=== PATIENT | female | born 1985 | race African-American/Black ===

== ENCOUNTER 2016-12-05 07:28 | Outpatient (CLI) | payer OTHER, MEDICAID ==
--- NOTE | 2016-12-05 08:01 | L&D Flow Sheet ---
LD Flowsheet Datetime Report Generated by CPN: 12/05/2016 08:00 Datetime: 12/05/2016 07:56 Vital Signs NBP Sys/Thea/Mean (mmHg): 105 (QS system process) : 55 (QS system process) : 75 (QS system process) Pulse: 87 (QS system process)
[2016-12-05 08:09] LABS: APPEARANCE,URINE CLEAR; BILIRUBIN,URINE NEGATIVE (NEGATIVE); GLUCOSE, URINE NEGATIVE (NEGATIVE); KETONES,URINE NEGATIVE (NEGATIVE); LEUKOCYTE ESTERASE,URINE NEGATIVE (NEGATIVE); NITRITE,URINE NEGATIVE (NEGATIVE); PROTEIN,URINE NEGATIVE (NEGATIVE); URINE SPECIFIC GRAVITY 1.016; UROBILINOGEN,URINE NEGATIVE mg/dL (<2.0)
[2016-12-05 08:23] LABS: URINE BARBITURATES SCREEN NEGATIVE; URINE METHADONE SCREEN NEGATIVE; URINE OPIATES LOW NEGATIVE; URINE PHENCYCLIDINE SCREEN NEGATIVE
--- NOTE | 2016-12-05 10:01 | L&D Flow Sheet ---
LD Flowsheet Datetime Report Generated by CPN: 12/05/2016 10:00 Datetime: 12/05/2016 09:00 Monitor Mode: External (Mery Hedrick, RN) Frequency (min): None (Mery Hedrick, RN) Resting Tone (Palpate): Relaxed (Mery Hedrick, RN) Monitor Mode: External US (Mery Hedrick, RN) FHR Baseline Rate : 125 (Mery Hedrick, RN) Variability: Moderate 6-25 bpm (Mery Hedrick, RN) Accelerations: 15X15 (Mery Hedrick, RN) Decelerations: None (Mery Hedrick, RN) Datetime: 12/05/2016 08:58 I/O Interventions: Up to BR (Mery Hedrick RN) Datetime: 12/05/2016 08:56 NBP Sys/Thea/Mean (mmHg): 98 (QS system process) : 54 (QS system process) : 70 (QS system process) Pulse: 89 (QS system process) Datetime: 12/05/2016 08:30 Monitor Mode: External (Mery Hedrick RN) Frequency (min): x1 (Mery Hedrick RN) Quality: Mild (Mery Hedrick RN) Duration (sec): 50 (Mery Hedrick RN) Resting Tone (Palpate): Relaxed (Mery Hedrick RN) Monitor Mode: External US (Mery Hedrick RN) FHR Baseline Rate : 135 (Mery Hedrick RN) Variability: Moderate 6-25 bpm (Mery Hedrick RN) Accelerations: 10X10 (Mery Hedrick RN) Decelerations: None (Mery Hedrick RN) Datetime: 12/05/2016 08:27 NBP Sys/Thea/Mean (mmHg): 101 (QS system process) : 58 (QS system process) : 76 (QS system process) Pulse: 85 (QS system process)
== END 2016-12-05 10:43 | disposition home or self-care (01) ==
LOC: LC 07:28
PROVIDERS: ATTEND Obstetrics & Gynecology
PROC: 4A1HXCZ Monitoring of Products of Conception, Cardiac Rate, External Approach (ICD-10-PCS; principal; 2016-12-05)
DX: O46.93 Antepartum hemorrhage, unspecified, third trimester (principal); Z3A.31 31 weeks gestation of pregnancy
CPT/HCPCS: 76815; 80307; 81001

== ENCOUNTER 2017-01-28 15:49 | Outpatient (CLI) | payer OTHER, MEDICAID ==
--- NOTE | 2017-01-28 16:50 | Non Stress Test Report ---
Non Stress Test Datetime Report Generated by CPN: 01/28/2017 16:49 DEMOGRAPHIC EGA NST: 39.2 INDICATION Indication for Study: Other Indication for Study (NST) Other: LABOR CHECK- SWELLING IN LEGS MONITORING Monitor Explained: Monitor Explained; Test Explained; Patient Verbalized Understanding Time on Monitor: 01/28/2017 16:17 Time off Monitor: 01/28/2017 16:38 NST Duration: 21 NST INTERVENTIONS NST Interventions: PO Hydration; Reposition Patient Physician Notified NST: DR WEINER REVIEWED STRIP BABY A: [id number] BABY A Movement : Present Contraction Frequency : x2 FHR Baseline : 135 Accelerations : 15X15 Decelerations : None Variability : Moderate 6-25bpm NST Review: Meets Criteria for Reactive NST NST Review and Verified By : Marcia Malave RN NST Results: Reactive NST REPORT Report Trigger: Send Report
[2017-01-28 17:13] LABS: APPEARANCE,URINE SLIGHTLY-CLOUDY; BILIRUBIN,URINE NEGATIVE (NEGATIVE); GLUCOSE, URINE NEGATIVE (NEGATIVE); KETONES,URINE NEGATIVE (NEGATIVE); LEUKOCYTE ESTERASE,URINE NEGATIVE (NEGATIVE); NITRITE,URINE NEGATIVE (NEGATIVE); PROTEIN,URINE NEGATIVE (NEGATIVE); UROBILINOGEN,URINE NEGATIVE mg/dL (<2.0)
[2017-01-28 17:44] LABS: URINE BARBITURATES SCREEN NEGATIVE; URINE METHADONE SCREEN NEGATIVE; URINE OPIATES LOW NEGATIVE; URINE PHENCYCLIDINE SCREEN NEGATIVE
== END 2017-01-28 16:57 | disposition home or self-care (01) ==
LOC: LC 15:49
PROVIDERS: ATTEND Obstetrics & Gynecology
PROC: 4A1HXCZ Monitoring of Products of Conception, Cardiac Rate, External Approach (ICD-10-PCS; principal; 2017-01-28)
DX: O12.03 Gestational edema, third trimester (principal); Z3A.39 39 weeks gestation of pregnancy
CPT/HCPCS: 59025; 80307; 81005

== ENCOUNTER 2017-02-28 00:37 | Emergency (ER) | payer OTHER, MEDICAID ==
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
[2017-02-28] MEDS ORDERED: NAPROXEN 250 MG TABLET PO ONE (00:52)
[2017-02-28 01:08] VITALS: BP 169/98
== END 2017-02-28 01:46 | disposition home or self-care (01) ==
LOC: ER 00:37
DX: S16.1XXA Strain of muscle, fascia and tendon at neck level, initial encounter (principal); M54.2 Cervicalgia; V87.7XXA Person injured in collision between other specified motor vehicles (traffic), initial encounter
CPT/HCPCS: 99283

== ENCOUNTER 2018-07-04 11:55 | Emergency (ER) | payer MEDICAID, OTHER ==
--- NOTE | 2018-07-04 13:04 | ER Document Report ---
ED Medical Screen (RME) - General Chief Complaint: Vaginal Bleeding Stated Complaint: VAGINAL BLEEDING Time Seen by Provider: 07/04/18 12:58 Mode of Arrival: Ambulatory Information source: Patient TRAVEL OUTSIDE OF THE [place] IN LAST 30 DAYS: No - HPI Patient complains to provider of: Vaginal bleeding today Onset: Other - 32-year-old female who had a medically induced miscarriage in April of this year with a return to normal functioning thereafter, had not had any menses since that time today began to have painless vaginal bleeding with passage of large clots in the toilet subsequently began to have cramping pain and passage of many other large clots which is persisted since. She denies any problems with bleeding in the past having menses in the past previous surgeries or other symptoms. - Related Data Allergies/Adverse Reactions: aspirin Allergy (Verified 12/05/16 07:58) Pruritis Past Medical History Past Surgical History: Reports: Hx Section - Immunizations Hx Diphtheria, Pertussis, Tetanus Vaccination: Yes Physical Exam - Vital signs Vitals: Temp Pulse Resp BP Pulse Ox 98.4 F 79 18 138/92 H 99 07/04/18 12:04 07/04/18 12:04 07/04/18 12:04 07/04/18 12:04 07/04/18 12:04 Course - Re-evaluation Re-evalutation: 07/04/18 13:04 32-year-old female presents for vaginal bleeding and cramping after having a medically induced miscarriage and 2 months prior. On examination she is overall well-appearing hemodynamically stable, will plan for this patient undergo a likely pelvic examination CBC with coags to be checked to ensure she does not have a reason to be bleeding. We will obtain urinalysis and urine as well. We will plan for disposition determination based on follow-up examination. - Vital Signs Vital signs: Temp Pulse Resp BP Pulse Ox 98.4 F 79 18 138/92 H 99 07/04/18 12:04 07/04/18 12:04 07/04/18 12:04 07/04/18 12:04 07/04/18 12:04
[2018-07-04 14:32] LABS: INTERNATIONAL RATION (INR) 0.96; PARTIAL THROMBOPLASTIN TIME 30.9 SEC (23.5-35.8); PROTHROMBIN TIME 13.3 SEC (11.4-15.4)
[2018-07-04 14:37] LABS: ABSOLUTE BASOPHILS # (AUTO) 0.1 10^3/uL (0.0-0.2); ABSOLUTE EOSINOPHILS # (AUTO) 0.1 10^3/uL (0.0-0.6); ABSOLUTE MONOCYTES (AUTO) 0.5 10^3/uL (0.1-1.4); ABSOLUTE NEUT (AUTO) 3.9 10^3/uL (1.7-8.2); HEMATOCRIT 38.8 % (36.0-47.0); LYMPHOCYTES % (AUTO) 30.3 % (13-45); MEAN CORPUSCULAR HEMOGLOBIN 28.3 pg (27.0-33.4); MEAN CORPUSCULAR HGB CONC 33.6 g/dL (32.0-36.0); MEAN CORPUSCULAR VOLUME 84 fl (80-97); MONOCYTES % (AUTO) 7.4 % (3-13); PLATELET COUNT 290 10^3/uL (150-450); RED BLOOD COUNT 4.61 10^6/uL (3.72-5.28); RED CELL DISTRIBUTION WIDTH 14.2 % (11.5-14.0); SEGMENTED NEUTROPHILS % (AUTO) 60.3 % (42-78); TOTAL CELLS COUNTED % (AUTO) 100 %; WHITE BLOOD COUNT 6.5 10^3/uL (4.0-10.5)
[2018-07-04 14:45] LABS: APPEARANCE,URINE CLOUDY; BILIRUBIN,URINE NEGATIVE (NEGATIVE); COLOR,URINE RED; GLUCOSE, URINE 50 mg/dL (NEGATIVE); KETONES,URINE NEGATIVE (NEGATIVE); LEUKOCYTE ESTERASE,URINE NEGATIVE (NEGATIVE); NITRITE,URINE NEGATIVE (NEGATIVE); PROTEIN,URINE >=500 mg/dL (NEGATIVE); URINE SPECIFIC GRAVITY 1.015; UROBILINOGEN,URINE NEGATIVE mg/dL (<2.0)
[2018-07-04 14:52] LABS: ANION GAP 13 (5-19); BLOOD UREA NITROGEN 5 mg/dL (7-20); CALCIUM 9.6 mg/dL (8.4-10.2); CARBON DIOXIDE 25 mmol/L (22-30); CHLORIDE 103 mmol/L (98-107); GLUCOSE 82 mg/dL (75-110); POTASSIUM 3.6 mmol/L (3.6-5.0); SODIUM 141.3 mmol/L (137-145)
--- NOTE | 2018-07-04 15:36 | ER Document Report ---
ED GI/ - General Chief Complaint: Vaginal Bleeding Stated Complaint: VAGINAL BLEEDING Time Seen by Provider: 07/04/18 12:58 Mode of Arrival: Ambulatory Information source: Patient TRAVEL OUTSIDE OF THE [place] IN LAST 30 DAYS: No - HPI Patient complains to provider of: Vaginal bleeding Onset: This morning Timing/Duration: Persistent Quality of pain: Cramping Severity at maximum: Mild Severity in ED: Mild Location: Suprapubic Vaginal bleeding (Compared to normal period): Heavier, Passing clots Similar symptoms previously: No Recently seen / treated by doctor: Yes Notes: 07/04/18 15:35 Patient is a 32-year-old female presenting to the emergency room complaining of heavy vaginal bleeding with passage of large clots and cramping that started around 11:00 today, patient had a medically induced on April 30 at [facility], she bled for a few days afterwards and has had some spotting , she is currently using a NuvaRing for contraceptive protection, and noted a slight odor and discharge when she inserted the NuvaRing, she reports mild cramping, no fevers, no dysuria - Related Data Allergies/Adverse Reactions: aspirin Allergy (Verified 07/04/18 13:06) Pruritis Past Medical History - General Information source: Patient - Social History Smoking Status: Current Every Day Smoker Chew tobacco use (# tins/day): No Frequency of alcohol use: Occasional Drug Abuse: Marijuana Family History: Reviewed & Not Pertinent Patient has suicidal ideation: No Patient has homicidal ideation: No Renal/ Medical History: Denies: Hx Peritoneal Dialysis Past Surgical History: Reports: Hx Section - Immunizations Hx Diphtheria, Pertussis, Tetanus Vaccination: Yes Review of Systems - Review of Systems Constitutional: No symptoms reported EENT: No symptoms reported Cardiovascular: No symptoms reported Respiratory: No symptoms reported Gastrointestinal: No symptoms reported Genitourinary: No symptoms reported Female Genitourinary: See HPI Musculoskeletal: No symptoms reported Skin: No symptoms reported Hematologic/Lymphatic: No symptoms reported Neurological/Psychological: No symptoms reported -: Yes All other systems reviewed and negative Physical Exam - Vital signs Vitals: Temp Pulse Resp BP Pulse Ox 98.4 F 79 18 138/92 H 99 07/04/18 12:04 07/04/18 12:04 07/04/18 12:04 07/04/18 12:04 07/04/18 12:04 Interpretation: Normal - General General appearance: Appears well, Alert - HEENT Head: Normocephalic, Atraumatic Eyes: Normal Pupils: PERRL - Respiratory Respiratory status: No respiratory distress Chest status: Nontender Breath sounds: Normal Chest palpation: Normal - Cardiovascular Rhythm: Regular Heart sounds: Normal auscultation Murmur: No - Abdominal Inspection: Normal Distension: No distension Bowel sounds: Normal Tenderness: Nontender Organomegaly: No organomegaly - Back Back: Normal, Nontender - Extremities General upper extremity: Normal inspection, Nontender, Normal color, Normal ROM , Normal temperature General lower extremity: Normal inspection, Nontender, Normal color, Normal ROM , Normal temperature, Normal weight bearing. No: Kalpesh's sign - Neurological Neuro grossly intact: Yes Cognition: Normal Orientation: AAOx4 [place] Coma Scale Eye Opening: Spontaneous [place] Coma Scale Verbal: Oriented [place] Coma Scale Motor: Obeys Commands [place] Coma Scale Total: 15 Speech: Normal Motor strength normal: LUE, RUE, LLE, RLE Sensory: Normal - Psychological Associated symptoms: Normal affect, Normal mood - Skin Skin Temperature: Warm Skin Moisture: Dry Skin Color: Normal Course - Re-evaluation Re-evalutation: 07/04/18 17:11 Patient history, labs, vital signs and ultrasound findings were discussed with on-call [facility], Dr. Villegas who recommends patient be given high dose hormones and be discharged for follow-up as an outpatient, I did specifically question whether we needed to be concerned about retained products of conception given patient's positive hCG, which he stated was not of concern at this point in time , therefore patient will be given a dose of Provera in the emergency department and advised for close follow-up with strict return precautions, patient acknowledges understanding and agreement with this plan - Vital Signs Vital signs: Temp Pulse Resp BP Pulse Ox 98.4 F 79 18 138/92 H 99 07/04/18 12:04 07/04/18 12:04 07/04/18 12:04 07/04/18 12:04 07/04/18 12:04 - Laboratory Result Diagrams: 07/04/18 13:52 07/04/18 13:52 Laboratory results interpreted by me: 07/04/18 07/04/18 07/04/18 13:52 13:52 13:52 RDW 14.2 H BUN 5 L Beta HCG, Quant Urine Protein >=500 H Urine Glucose (UA) 50 H Urine Blood LARGE H 07/04/18 13:52 RDW BUN Beta HCG, Quant 8.06 H Urine Protein Urine Glucose (UA) Urine Blood - Diagnostic Test Radiology reviewed: Image reviewed, Reports reviewed Discharge - Discharge Clinical Impression: Dysfunctional uterine bleeding Condition: Stable Disposition: HOME, SELF-CARE Instructions: Dysfunctional Uterine Bleeding ([facility]) Additional Instructions: Follow up with your primary care provider and [facility] in one to 2 days. Return to the emergency room immediately if symptoms worsen or any additional concerns.
--- NOTE | 2018-07-04 16:46 | RADIOLOGY REPORT (SQ) ---
EXAM DESCRIPTION: U/S NON OB PEL W/DOPPLER COMPLETED DATE/TIME: 07/04/2018 4:30 pm REASON FOR STUDY: vag bleeding COMPARISON: None. TECHNIQUE: Dynamic and static grayscale images acquired of the pelvis via transabdominal approach an d recorded on PACS. Additional selected color Doppler and spectral images recorded. LIMITATIONS: None. FINDINGS: UTERUS: Contour normal. A tiny hypoechoic area is identified within the superior uterus m easuring 1.9 x 1.5 x 1.5 cm the appearance would suggest a small cyst however other etiologies cannot be excluded ENDOMETRIAL STRIPE: No focal or generalized thickening. Hypoechoic area is identified measuring 2.0 x 1.5 x 2.6 cm in diameters. The appearance would suggest a cystic lesion however other etiologies c annot be excluded CERVIX: No nabothian cysts. RIGHT OVARY AND DOPPLER: Normal size. No worrisome masses. Normal arterial vascular flow without evid ence for torsion. LEFT OVARY AND DOPPLER: Left ovary was not visualized. FREE FLUID: None noted. OTHER: No other significant finding. MEASUREMENTS: UTERUS: 11.4 x 5.4 x 6.1 cm ENDOMETRIAL STRIPE: 14 mm RIGHT OVARY: 2.8 by 3.4 x 2.9 cm LEFT OVARY: Not visualized IMPRESSION: Small hypoechoic areas within the uterus and endometrium as noted above suggesting cysti c lesions however other etiologies cannot be excluded. No other significant pelvic abnormalities wer e identified. Other findings as noted above TECHNICAL DOCUMENTATION: JOB ID: [id number]- All Rights Reserved Reading location - IP/workstation name: [email or web address]
[2018-07-04] MEDS ORDERED: MEDROXYPROGESTERONE ACET 10 MG TABLET PO ONE (17:05)
[2018-07-04 17:24] VITALS: BP 118/80
== END 2018-07-04 17:24 | disposition home or self-care (01) ==
LOC: ER 11:55
DX: N93.8 Other specified abnormal uterine and vaginal bleeding (principal); R10.30 Lower abdominal pain, unspecified; F17.200 Nicotine dependence, unspecified, uncomplicated; F12.10 Cannabis abuse, uncomplicated; Z97.5 Presence of (intrauterine) contraceptive device; Z98.890 Other specified postprocedural states; Z88.6 Allergy status to analgesic agent
CPT/HCPCS: 99284; 36415; 84702; 85025; 85610; 85730; 81025; 80048; 81001; 76856; 93976; J3490

== ENCOUNTER 2018-08-29 14:01 | Emergency (ER) | payer OTHER, MEDICAID ==
[2018-08-29 14:30] VITALS: BP 137/92
[2018-08-29] MEDS ORDERED: IBUPROFEN 600 MG TABLET PO ONE (14:54)
--- NOTE | 2018-08-29 15:08 | ER Document Report ---
HPI - HPI Pain Level: 5 Notes: Patient is a 32-year-old female with complaint of right upper dental pain around tooth #30 and 31. Patient reports she broke #30 several years ago however she thinks there are some fragments of tooth still left and reports that the pain has worsened over the last several days. Patient denies any fevers. Has not seen a dentist. - CONSTITUTIONAL Constitutional: DENIES: Fever, Chills - REPRODUCTIVE Reproductive: DENIES: : Past Medical History - General Information source: Patient - Social History Smoking Status: Current Every Day Smoker Frequency of alcohol use: Occasional Drug Abuse: Marijuana Family History: Reviewed & Not Pertinent Patient has suicidal ideation: No Patient has homicidal ideation: No - Medical History Medical History: Negative Renal/ Medical History: Denies: Hx Peritoneal Dialysis Past Surgical History: Reports: Hx Section - Immunizations Hx Diphtheria, Pertussis, Tetanus Vaccination: Yes Vertical Provider Document - CONSTITUTIONAL Notes: PHYSICAL EXAMINATION: GENERAL: Well-appearing, well-nourished and in no acute distress. HEAD: Atraumatic, normocephalic. EYES: Pupils equal round extraocular movements intact, conjunctiva are normal. ENT: Nares patent edema and erythema noted around tooth #31, tooth #30, is missing. No drainable abscess identified. NECK: Normal range of motion LUNGS: No respiratory distress Musculoskeletal: Normal range of motion NEUROLOGICAL: Normal speech, normal gait. PSYCH: Normal mood, normal affect. SKIN: Warm, Dry, normal turgor, no rashes or lesions noted. - INFECTION CONTROL TRAVEL OUTSIDE OF THE [place] IN LAST 30 DAYS: No Course - Re-evaluation Re-evalutation: Physical examination consistent with dental infection, no drainable abscess identified. Patient does appear to be in pretty significant pain. Will give short course of hydrocodone. Patient will be started on penicillin VK. Patient instructed to call tomorrow to schedule an appointment with a dentist. - Vital Signs Vital signs: Temp Pulse Resp BP Pulse Ox 98.9 F 64 16 137/92 H 100 08/29/18 14:29 08/29/18 14:29 08/29/18 14:29 08/29/18 14:29 08/29/18 14:29 Discharge - Discharge Clinical Impression: Dental infection Condition: Stable Disposition: HOME, SELF-CARE Additional Instructions: TOOTHACHE: Your pain is due to dental decay. The tooth must be repaired in order for you to feel better. You will, therefore, be referred to a dentist. We do not have dentists on the staff at [facility]. Severe swelling or drainage around a tooth usually means a dental abscess. This also requires evaluation and treatment by the dentist, but antibiotics may be prescribed while awaiting dental treatment. You should be rechecked immediately if you develop major swelling of the face, increasing pain, a lump in the jaw or gums, headache, difficulty swallowing, or fever. ORAL NARCOTIC MEDICATION: You have been given a prescription for pain control. This medication is a narcotic. It's best taken with food, as nausea can result if taken on an empty stomach. Don't operate machinery or drive within six hours of taking this medication. Do not combine this medicine with alcohol, or with any medication which can cause sedation (such as cold tablets or sleeping pills) unless you get permission from the physician. Narcotics tend to cause constipation. If possible, drink plenty of fluids and eat a diet high in fiber and fruits. Please be aware that prescription narcotics also have the potential for abuse. People become addicted to these medications because of the general sense of wellbeing that they induce. This feeling along with a significant reduction in tension, anxiety, and aggression provides a stimulating seductive quality to these drugs. Once your pain is under control, we encourage you to discard your unused narcotics. PENICILLIN V K: You have been given a prescription for Penicillin VK. Your physician has determined that this is the best antibiotic for your condition. Pen VK can be taken with meals, however more of the antibiotic gets into the bloodstream if it's taken on an empty stomach. Penicillin usually has no side effects. However, allergy to penicillins is common. If you have had an allergic reaction to any drug of the penicillin family, you should never take any other penicillin. Notify your doctor at once if you develop hives, itching, swelling, faintness, or shortness of breath. FOLLOW-UP CARE: You have been referred for follow-up care to the dentists listed below. Call the dentists office for an appointment as you were instructed or within the next two days. If you experience worsening or a significant change in your symptoms, notify the physician immediately or return to the Emergency Department at any time for re-evaluation. Please take antibiotics as prescribed, finish the entire course even if your symptoms resolve. Take ibuprofen 600 mg every 6 hours. Use the narcotic pain medication only for severe pain. You may take 1/2-1 tablet every 4 hours. Please call Thursday morning to schedule a follow-up appointment with your dentist. Prescriptions: Hydrocodone/Acetaminophen [Hydrocodon-Acetaminophen 5-325] 1 each PO Q4H PRN #6 tablet PRN Reason: For Pain Penicillin V Potassium [Penicillin Vk 500 mg Tablet] 500 mg PO BID #20 tablet
== END 2018-08-29 15:22 | disposition home or self-care (01) ==
LOC: ER 14:01
DX: K04.7 Periapical abscess without sinus (principal); K08.89 Other specified disorders of teeth and supporting structures; F17.200 Nicotine dependence, unspecified, uncomplicated
CPT/HCPCS: 99282

== ENCOUNTER 2019-01-11 16:31 | Emergency (ER) | payer MEDICAID, OTHER ==
--- NOTE | 2019-01-11 17:41 | ER Document Report ---
ED Medical Screen (RME) - General Chief Complaint: Abdominal Pain Stated Complaint: EARACHE Time Seen by Provider: 01/11/19 17:38 TRAVEL OUTSIDE OF THE [place] IN LAST 30 DAYS: No - HPI Notes: 01/11/19 17:39 Patient is a 33-year-old female who presents the emergency department complaining of a sore throat, right ear pain over the last couple days as well as having urinary frequency and intermittent lower mid pelvic pain (mild) over the last 2 weeks. Patient states that she did take a home test recently that was positive. Patient states that she did have menstrual bleeding 1 month ago. She has had 2 previous C-sections otherwise. No other concerns or complaints. She is eating and drinking without difficulty. She is having normal bowel movements. Denies any other vaginal discharge/odor/bleeding. Denies any headache, fever, URI, sore throat, chest pain, palpitations, syncope, cough, shortness of breath, wheeze, dyspnea, nausea/vomiting/diarrhea, urinary retention, dysuria, hematuria, or rash. I have treated and performed a rapid initial assessment of this patient. A comprehensive ED assessment and evaluation of the patient, analysis of test results and completion of medical decision making process will be conducted by additional ED providers. PHYSICAL EXAMINATION: GENERAL: Well-appearing, well-nourished and in no acute distress. A&Ox4. Answers questions appropriately. LUNGS: Breath sounds clear to auscultation bilaterally and equal. No wheezes rales or rhonchi. HEART: Regular rate and rhythm without murmurs, rubs, gallops. ABDOMEN: Soft, nondistended abdomen. No guarding, no rebound. Normal bowel sounds present. No CVA tenderness bilaterally. + mild tenderness lower pelvic area. No tenderness at [place]. Extremities: No cyanosis, clubbing, or edema b/l. NEUROLOGICAL: Normal speech, normal gait. PSYCH: Normal mood, normal affect. - Related Data Allergies/Adverse Reactions: aspirin Allergy (Verified 07/04/18 13:06) Pruritis Past Medical History Renal/ Medical History: Denies: Hx Peritoneal Dialysis Past Surgical History: Reports: Hx Section - Immunizations Hx Diphtheria, Pertussis, Tetanus Vaccination: Yes Physical Exam - Vital signs Vitals: Temp Pulse Resp BP Pulse Ox 99.4 F 72 18 137/80 H 98 01/11/19 16:38 01/11/19 16:38 01/11/19 16:38 01/11/19 16:38 01/11/19 16:38 Course - Vital Signs Vital signs: Temp Pulse Resp BP Pulse Ox 99.4 F 72 18 137/80 H 98 01/11/19 16:38 01/11/19 16:38 01/11/19 16:38 01/11/19 16:38 01/11/19 16:38
[2019-01-11 18:08] LABS: APPEARANCE,URINE CLEAR; BILIRUBIN,URINE NEGATIVE (NEGATIVE); COLOR,URINE YELLOW; GLUCOSE, URINE NEGATIVE (NEGATIVE); KETONES,URINE NEGATIVE (NEGATIVE); LEUKOCYTE ESTERASE,URINE NEGATIVE (NEGATIVE); NITRITE,URINE NEGATIVE (NEGATIVE); PROTEIN,URINE NEGATIVE (NEGATIVE); URINE SPECIFIC GRAVITY 1.017; UROBILINOGEN,URINE NEGATIVE mg/dL (<2.0)
--- NOTE | 2019-01-11 21:00 | RADIOLOGY REPORT (SQ) ---
EXAM DESCRIPTION: US TRANSVAGINAL COMPLETED DATE/TME: 01/11/2019 17:38 CLINICAL HISTORY: 33 years, Female, pelvic pain, recent + preg test COMPARISON: None. EXAM DESCRIPTION: CLINICAL HISTORY: pelvic pain, recent + preg test COMPARISON: None. FINDINGS: Ectopic is not excluded. [ ] [transvaginal ] images of the pelvis were submitted. The uterus measures 10.6 x 7.1 x 6.0 cm. Cervix length 27 mm. Cervix contains nabothian cysts. A heterogeneous calcified fibroid versus other etiology lesion is seen at the uterine fundus measuring 20 x 17 mm. Endometrium is thickened at 20 mm. No gestational sac is seen. Neither ovary is identified. IMPRESSION: Ectopic is not excluded and follow-up is recommended. Nonspecific lesion in the uterine fundus could be a calcified fibroid. Attention is recommended at time of follow-up.
--- NOTE | 2019-01-11 22:43 | ER Document Report ---
ED GI/ - General Chief Complaint: Abdominal Pain Stated Complaint: EARACHE Time Seen by Provider: 01/11/19 17:38 Primary Care Provider: [facility] [Provider Group] - Follow up as needed Mode of Arrival: Ambulatory Information source: Patient Notes: 33-year-old female presented to ED for complaint of upper respiratory and's symptoms to include earache sore throat postnasal drip runny nose for the last couple days as well as urinary frequency intermittent with lower pelvic pain over the last 2 weeks. Patient states she took a home test that was positive. She states her last menstrual period was in the middle of December and she would be 4 weeks . Patient states she had a home test that was positive. She was seen by Esteban Barrientos in [facility] and he did start with basic labs of test and ultrasound and urinalysis. test does show a very early the ultrasound does not show a possible yet but this is very early. She states she thinks she received Rhogam with her previous so I will get a RhoGam before discharging her. Her urinalysis is negative. Will give her a lab slip for the repeat hCG in 48 hours. TRAVEL OUTSIDE OF THE [place] IN LAST 30 DAYS: No - HPI Patient complains to provider of: Pelvic pain, Onset: Other - 2 weeks Timing/Duration: Intermittent Quality of pain: Achy, Sharp Severity at maximum: Moderate Severity in ED: Moderate Pain Level: 2 Location: Pelvis Associated symptoms: Other - Earache, sore throat, and abdominal pain she is also early Exacerbated by: Denies Relieved by: Denies Similar symptoms previously: No Recently seen / treated by doctor: No - Related Data Allergies/Adverse Reactions: aspirin Allergy (Verified 07/04/18 13:06) Pruritis Past Medical History - General Information source: Patient - Social History Smoking Status: Current Every Day Smoker Cigarette use (# per day): Yes - 4-5 Smoking Education Provided: Yes - 4 min Frequency of alcohol use: Heavy - States she knows she has to quit Drug Abuse: Marijuana Lives with: Alone - With children Family History: Reviewed & Not Pertinent Patient has suicidal ideation: No Patient has homicidal ideation: No - Past Medical History Cardiac Medical History: Reports: None Pulmonary Medical History: Reports: None EENT Medical History: Reports: None Neurological Medical History: Reports: None Endocrine Medical History: Reports: None Renal/ Medical History: Reports: None Malignancy Medical History: Reports: None GI Medical History: Reports: None Musculoskeletal Medical History: Reports None Skin Medical History: Reports None Psychiatric Medical History: Reports: None Traumatic Medical History: Reports: None Infectious Medical History: Reports: None Past Surgical History: Reports: Hx Section - Immunizations Hx Diphtheria, Pertussis, Tetanus Vaccination: Yes Review of Systems - Review of Systems Constitutional: No symptoms reported EENT: Ear pain, Nose discharge, Sinus discharge, Throat pain Cardiovascular: No symptoms reported Respiratory: No symptoms reported Gastrointestinal: Abdominal pain Genitourinary: No symptoms reported Female Genitourinary: Musculoskeletal: No symptoms reported Skin: No symptoms reported Hematologic/Lymphatic: No symptoms reported Neurological/Psychological: No symptoms reported -: Yes All other systems reviewed and negative Physical Exam - Vital signs Vitals: Temp Pulse Resp BP Pulse Ox 99.4 F 72 18 137/80 H 98 01/11/19 16:38 01/11/19 16:38 01/11/19 16:38 01/11/19 16:38 01/11/19 16:38 Interpretation: Normal - General General appearance: Appears well, Alert - HEENT Head: Normocephalic, Atraumatic Eyes: Normal Pupils: PERRL Ears: Normal External canal: Normal Tympanic membrane: Injected, Loss of landmarks, Serous effusion Sinus: Normal Nasal: Purulent discharge, Swelling Pharynx: Post nasal drainage. No: Erythema, Exudate, Tonsillar hypertrophy Neck: Normal - Respiratory Respiratory status: No respiratory distress Chest status: Nontender Breath sounds: Normal Chest palpation: Normal - Cardiovascular Rhythm: Regular Heart sounds: Normal auscultation Murmur: No - Abdominal Inspection: Normal Distension: No distension Bowel sounds: Normal Tenderness: Tender - Suprapubic Organomegaly: No organomegaly - Back Back: Normal, Nontender - Extremities General upper extremity: Normal inspection, Nontender, Normal color, Normal ROM, Normal temperature General lower extremity: Normal inspection, Nontender, Normal color, Normal ROM, Normal temperature, Normal weight bearing. No: Kalpesh's sign - Neurological Neuro grossly intact: Yes Cognition: Normal Orientation: AAOx4 Godwin Coma Scale Eye Opening: Spontaneous [place]win Coma Scale Verbal: Oriented [place] Coma Scale Motor: Obeys Commands [place] Coma Scale Total: 15 Speech: Normal Motor strength normal: LUE, RUE, LLE, RLE Sensory: Normal - Psychological Associated symptoms: Normal affect, Normal mood - Skin Skin Temperature: Warm Skin Moisture: Dry Skin Color: Normal Course - Re-evaluation Re-evalutation: 01/12/19 00:20 Results discussed with patient. Written report of labs and ultrasound given to patient to follow-up with [facility]. Patient was also been given a lab slip to return in 48 hours for redraw of the serum hCG quant. Patient was discharged home after she verbalized understanding and agreement with treatment plan. - Vital Signs Vital signs: Temp Pulse Resp BP Pulse Ox 99.4 F 72 18 137/80 H 98 01/11/19 16:38 01/11/19 16:38 01/11/19 16:38 01/11/19 16:38 01/11/19 16:38 - Laboratory Laboratory results interpreted by me: 01/11/19 17:45 Beta HCG, Quant 118.41 H - Diagnostic Test Radiology reviewed: Image reviewed, Reports reviewed Discharge - Discharge Clinical Impression: Pelvic pain affecting in first trimester, antepartum Right otitis media Qualifiers: Otitis media type: serous Chronicity: acute Recurrence: not specified as recurrent Qualified Code(s): H65.01 - Acute serous otitis media, right ear Condition: Stable Disposition: HOME, SELF-CARE Additional Instructions: Pelvic Pain in Lower abdominal pain during can have many causes. We look for serious causes such as appendicitis, tubal , miscarriage, placental separation, or urinary tract infection. Less serious causes of pain include corpus luteum cyst (ovarian cyst of ) or stretching of the pelvic tissues by the enlarging uterus. Sometimes the pain comes from the bowels. If no specific cause for the pain is found, we attribute the pain to stretching of the uterine ligaments. This is called "round ligament strain." It is not dangerous. Just rest until the pain goes away. Call us or come back for reexamination if any problems occur, such as: (1) Pain that becomes more severe, steady, or becomes concentrated in one specific area. Also, pain that is more severe with movement or coughing. (2) Vomiting that persists or becomes more frequent. (3) Blood in the vomitus, urine, or bowel movements. Blood in the stool may have a tarry or black appearance. (4) Shaking chills or fever greater than 100 degrees. (5) The abdomen becomes more distended or swollen. (6) Bowel movements cease. (7) Vaginal bleeding. OTITIS MEDIA: You have a middle ear infection (otitis media). This is usually a complication of a cold or sore throat. The middle ear cavity becomes filled with infection. Pressure and stretching of the ear drum cause pain. Antibiotics are required. A 10 day course is usually prescribed. A decongestant may be recommended if you have a "runny nose." You may need anesthetic drops or other pain medication. A follow-up exam may be recommended to make sure the infection has completely cleared. If the ear begins to drain, it means the ear drum has ruptured. This will usually heal spontaneously. However, it means you should keep the ear dry until re-examined by a doctor. Call the physician or return for examination at once if there is severe headache, stiff neck, confusion, increasing fever, or dizziness. You should improve significantly within two days. If you're not better, call the doctor. AMOXICILLIN: Amoxicillin is a member of the penicillin family. It covers the germs likely to cause ear, bronchial, and urinary infections better than plain penicillin. Amoxicillin can be taken without regard to meals. Nausea after taking the medication is rare, but can occur. Diarrhea can occur, particularly in small children. Vaginal yeast infections and oral thrush in infants are also common. Contact your physician if these problems occur. Allergy to penicillins is common. If you have had an allergic reaction to any drug of the penicillin family, you should never take any other penicillin. Notify your doctor at once if you develop hives, itching, swelling, faintness, or shortness of breath. Less serious side effects can include nausea or diarrhea. USE OF ACETAMINOPHEN (Tylenol): Acetaminophen may be taken for pain relief or fever control. It's much safer than aspirin, offering a wider range of "safe" dosages. It is safe during . Some brand names are Tylenol, Panadol, Datril, Anacin 3, Tempra, and Liquiprin. Acetaminophen can be repeated every four hours. The following are maximum recommended dosages: WEIGHT Dose Drops Elixir Chewable(80mg) (LBS.) drprs=droppers tsp=teaspoon 6 40 mg 0.4 ml (1/2) 6-11 80 mg 0.8 ml (full) tsp 1 tab 12-16 120 mg 1 1/2 drprs 3/4 tsp 1 1/2 tabs 17-23 160 mg 2 drprs 1 tsp 2 tabs 24-30 240 mg 3 drprs 1 1/2 tsp 3 tabs 30-35 320 mg 2 tsp 4 tabs 36-41 360 mg 2 1/4 tsp 4 1/2 tabs 42-47 400 mg 2 1/2 tsp 5 tabs 48-53 480 mg 3 tsp 6 tabs 54-59 520 mg 3 1/4 tsp 6 1/2 tabs 60-64 560 mg 3 1/2 tsp 7 tabs 65-70 600 mg 3 3/4 tsp 7 1/2 tabs 71-76 640 mg 4 tsp 8 tabs 77-82 720 mg 4 1/2 tsp 9 tabs 83-88 800 mg 5 tsp 10 tabs >89 pounds or adults 650 mg to 900 mg Acetaminophen can be repeated every four hours. Maximum dose not to exceed 4000 mg a day. These maximum recommended dosages are slightly higher than the dosages written on the product container, but these dosages are very safe and below the toxic dosage for acetaminophen. FOLLOW-UP CARE: If you have been referred to a physician for follow-up care, call the physicians office for an appointment as you were instructed or within the next two days. If you experience worsening or a significant change in your symptoms, notify the physician immediately or return to the Emergency Department at any time for re-evaluation. Prescriptions: Amoxicillin Trihydrate [Amoxil 875 mg Tablet] 1 tab PO BID #20 tablet Forms: Elevated Blood Pressure, Follow-Up Laboratory Testing, Smoking Cessation Education, Return to Work Referrals: [facility] [Provider Group] - Follow up as needed
[2019-01-11] MEDS ORDERED: AMOXICILLIN TRIHYDRATE 500 MG CAPSULE PO ONE (23:26)
[2019-01-12 02:48] VITALS: BP 120/74
== END 2019-01-11 23:55 | disposition home or self-care (01) ==
LOC: ER 16:31
DX: O26.891 Other specified pregnancy related conditions, first trimester (principal); O99.331 Smoking (tobacco) complicating pregnancy, first trimester; H65.01 Acute serous otitis media, right ear; R10.2 Pelvic and perineal pain; R10.9 Unspecified abdominal pain; J02.9 Acute pharyngitis, unspecified; R09.82 Postnasal drip; R09.89 Other specified symptoms and signs involving the circulatory and respiratory systems; R35.0 Frequency of micturition; Z3A.01 Less than 8 weeks gestation of pregnancy
CPT/HCPCS: 36415; 76817; 81001; 84702; 86900; 86901; 87070; 87086; 87880; 99284; 99406

== ENCOUNTER → 2019-01-13 | Outpatient (CLI) | payer MEDICAID | LOC: LAB 19:16 | PROVIDERS: ATTEND Nurse Practitioner Family | DX: O26.891 Other specified pregnancy related conditions, first trimester (principal); R10.2 Pelvic and perineal pain; Z3A.00 Weeks of gestation of pregnancy not specified | CPT/HCPCS: 36415; 84702 ==

== ENCOUNTER 2019-03-24 18:16 | Emergency (ER) | payer MEDICAID ==
--- NOTE | 2019-03-24 19:45 | RADIOLOGY REPORT (SQ) ---
EXAM DESCRIPTION: SHOULDER RIGHT 2 OR MORE VIEWS COMPLETED DATE/TIME: 03/24/2019 7:25 pm REASON FOR STUDY: pain injury COMPARISON: None. NUMBER OF VIEWS: Three views. TECHNIQUE: Internal rotation, external rotation, and Y view images acquired of the right shoulder. LIMITATIONS: None. FINDINGS: MINERALIZATION: Normal. BONES: No acute fracture or dislocation. No worrisome bone lesions. JOINTS: No dislocation. VISUALIZED LUNGS AND RIBS: No pneumothorax. No rib fracture. SOFT TISSUES: No radiopaque foreign body. OTHER: No other significant finding. IMPRESSION: NEGATIVE STUDY OF THE RIGHT SHOULDER. NO RADIOGRAPHIC EVIDENCE OF ACUTE INJURY. TECHNICAL DOCUMENTATION: JOB ID: [id number] [employer]- All Rights Reserved Reading location - IP/workstation name: [email or web address]
--- NOTE | 2019-03-24 19:45 | RADIOLOGY REPORT (SQ) ---
EXAM DESCRIPTION: CLAVICLE RIGHT COMPLETED DATE/TIME: 03/24/2019 7:25 pm REASON FOR STUDY: pain injury COMPARISON: None. NUMBER OF VIEWS: Two views. TECHNIQUE: Frontal and angled images were acquired of the right clavicle. LIMITATIONS: None. FINDINGS: MINERALIZATION: Normal. BONES: No acute fracture or dislocation. No worrisome bone lesions. SOFT TISSUES: No obvious swelling or foreign body. OTHER: No other significant finding. IMPRESSION: NEGATIVE STUDY OF THE RIGHT CLAVICLE. NO RADIOGRAPHIC EVIDENCE OF ACUTE INJURY. TECHNICAL DOCUMENTATION: JOB ID: [id number] [employer]- All Rights Reserved Reading location - IP/workstation name: [email or web address]
[2019-03-24] MEDS ORDERED: IBUPROFEN 800 MG TABLET PO ONE (20:12)
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
[2019-03-24 20:43] VITALS: BP 122/71
== END 2019-03-24 21:12 | disposition home or self-care (01) ==
LOC: ER 18:16
DX: S49.91XA Unspecified injury of right shoulder and upper arm, initial encounter (principal); M25.511 Pain in right shoulder; M25.411 Effusion, right shoulder; M89.8X8 Other specified disorders of bone, other site; X58.XXXA Exposure to other specified factors, initial encounter; F17.210 Nicotine dependence, cigarettes, uncomplicated; Z71.6 Tobacco abuse counseling; F12.10 Cannabis abuse, uncomplicated
CPT/HCPCS: 99406; 99283; 73000; 73030; J3490